=== PATIENT | male | born 1990 ===

== ENCOUNTER 2016-11-04 18:53 | Emergency (ER) | payer MEDICAID ==
[2016-11-04 19:01] VITALS: BP 132/71; PULSE 60; RESP 20; TEMP 98; O2SAT 98
--- NOTE | 2016-11-04 19:10 | ED PDOC ---
HPI: Wound Care - HPI Time Seen by Provider: 11/04/16 19:02 Chief Complaint (Nursing): Suture/Staple Removal Chief Complaint (Provider): suture removal History Per: Patient Exam Limitations: no limitations Additional Complaint(s): 26yo M in ED for eval of suture removal placed 6d ago to above right eye. no drainage no swelling no fever no pain. Past Medical History Reviewed: Historical Data, Nursing Documentation, Vital Signs Vital Signs: Last Vital Signs Temp 98 F 11/04/16 18:58 Pulse 60 11/04/16 18:58 Resp 20 11/04/16 18:58 BP 132/71 11/04/16 18:58 Pulse Ox 98 11/04/16 18:58 - Medical History PMH: No Chronic Diseases - Family History Family History: States: No Known Family Hx - Allergies Allergies/Adverse Reactions: Allergies Allergy/AdvReac Type Severity Reaction Status Date / Time No Known Allergies Allergy Verified 11/04/16 19:00 Review of Systems ROS Statement: Except As Marked, All Systems Reviewed And Found Negative Skin: Positive for: Rash Physical Exam - Reviewed Nursing Documentation Reviewed: Yes Vital Signs Reviewed: Yes - Physical Exam Appears: Positive for: Well, Non-toxic, No Acute Distress Skin: Positive for: Normal Color, Warm, DRY Eye Exam: Positive for: Normal appearance, EOMI, PERRL, Other (suture in place no wound dehescience. ) Cardiovascular/Chest: Positive for: Regular Rate, Rhythm Respiratory: Positive for: CNT, Normal Breath Sounds Neurologic/Psych: Positive for: Alert, Oriented - ECG O2 Sat by Pulse Oximetry: 98 Medical Decision Making Medical Decision Making: suture removed without complication advised to use lomax butter or cocoa butter for scarring. Disposition - Clinical Impression Clinical Impression: Removal of suture - Patient ED Disposition Is Patient to be Admitted: No Counseled Patient/Family Regarding: Diagnosis, Need For Followup - Disposition Disposition: Routine/Home Disposition Time: 19:10 Condition: GOOD Instructions: Stitches Removal (ED)
== END 2016-11-04 19:20 | disposition home or self-care (01) ==
LOC: H.ER 18:53
DX: Z48.02 Encounter for removal of sutures (principal)